=== PATIENT | female | born 1965 | race African-American/Black ===

== ENCOUNTER 2016-09-14 08:59 | Emergency (ER) | payer BC ==
[~2016-09-14] VITALS: Ht 157.5 cm; Wt 72.6 kg
[~2016-09-14 08:59] MED LIST: ALLEGRA ALLERG180 MG PO; AMOXICILLIN500 MG ORAL; CIPRO500 MG PO; FAMOTIDINE20 MG ORAL; FIORICET1 EA ORAL; FLONASE1 SPRAYS NASAL; IBUPROFEN600 MG ORAL; NKM; ONDANSETRON ODT4 MG ORAL; RANITIDINE HCL150 MG ORAL; Tubing IV Cassette IV ONE; VICODIN 5-5001 EACH PO
--- NOTE | 2016-09-14 09:13 | Emergency Room Report ---
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 Bi-frontal, associated with nausea/vomiting, sensitivity to light, history of migraines, "this is how it starts." Took 2 200mg ibuprofen at 5am. Denies fever/chills, neck pain/ stiffness. Usually just takes ibuprofen for pain. Allergies: Coded Allergies: SHELLFISH (Verified Allergy, Unknown, ALLERGY TO SHRIMP, 11/01/11) Patient History Past Medical History: migraines Past Surgical History: none Pertinent Family History: none Social History: Denies: alcohol use, drug use, smoking Last Menstrual Period: Menopause Now: No Immunizations: UTD Reviewed Nursing Documentation: PMH: Agreed, PSxH: Agreed Review of Systems All Other Systems: negative except mentioned in HPI Physical Exam Vital Signs Date Time Temp Pulse Resp B/P Pulse Ox O2 Delivery O2 Flow Rate FiO2 09/14/16 09:06 97.9 80 16 138/94 98 Room Air Sp02 EP Interpretation: reviewed, normal General Appearance: normal inspection, well appearing, alert, GCS 15, non-toxic , mild distress Head: normocephalic, atraumatic Eyes: bilateral eye EOMI, bilateral eye PERRL ENT: normal ENT inspection, hearing grossly normal, normal voice Neck: normal inspection, full range of motion, supple, thyroid normal, no meningismus, no bony tend Respiratory: normal inspection, lungs clear, normal breath sounds, no respiratory distress, no retraction, no wheezing Cardiovascular #1: regular rate, rhythm, no edema Gastrointestinal: normal inspection, normal bowel sounds, non tender, soft, no guarding, no hernia Genitourinary: no CVA tenderness Musculoskeletal: normal inspection, back normal, normal range of motion, Nida' s Sign negative Neurologic: normal inspection, alert, oriented x3, responsive, weaver narrow fabrics III-XII nml as tested, motor strength/tone normal, speech normal Psychiatric: normal inspection, judgement/insight normal, mood/affect normal Skin: normal inspection, normal color, no rash, warm/dry Lymphatic: normal inspection Medical Decision Making Diagnostic Impression: Primary Impression: Headache Qualified Codes: G44.209 - Tension-type headache, unspecified, not intractable ER Course 51YOF with headache. VSS. Afebrile. Low suspicion for SAH or meningitis given well appearance, absence of focal neuro deficits, absence of meningismus, normal vital signs, and duration and intensity of headache. IV toradol/benadryl/reglan with IVF given with improvement CT head negative for acute process Headache resolved Neuro exam serially negative for focal deficits Vitals stable on discharge F/up with PMD with referral for Neurologist DC home Last Vital Signs Date Time Temp Pulse Resp B/P Pulse Ox O2 Delivery O2 Flow Rate FiO2 09/14/16 09:06 97.9 80 16 138/94 98 Room Air Status: improved Disposition: HOME, SELF-CARE Scripts Oxycodone/Acetaminophen 5-325* (PERCOCET 5-325 MG TABLET*) 1 Each Tablet 1 TAB ORAL BID Y for headache, #20 TAB Prov: ZACH BRUNO M.D. 09/14/16 ZACH BRUNO M.D. Sep 14, 2016 09:13
[2016-09-14] MEDS ORDERED: LR 1000ml 1,000 ML IV SCH (09:15)
[2016-09-14] MEDS ORDERED: Metoclopramide 10mg/2ml Inj IVP ONE (09:15)
[2016-09-14] MEDS ORDERED: DiphenhydrAMINE 50mg/ml Inj IVP ONE (09:15)
[2016-09-14] MEDS ORDERED: Ketorolac 30mg Inj IV ONE (09:15)
[2016-09-14] MEDS ORDERED: Oxycodone/Acetaminophen 5-325 ORAL ONE (10:45)
[2016-09-14 10:56] VITALS: BP 122/89
--- NOTE | 2016-09-14 11:48 | Diagnostic Imaging Report ---
Indication: Headache Technique: Contiguous 5 mm thick transaxial imaging of the head obtained in a Siemens Sensation [address] scanner. Soft tissue and bone windows generated. Total Dose length Product (DLP): [address] Dose Index Volume (CTDIvol): 70.38 mGy Comparison: 04/23/12 Findings: The size and configuration of the cortical sulci, basal cisterns, and ventricles are within normal limits for age. There is no mass effect, midline shift, or edema identified. There is no evidence of acute hemorrhage or abnormal intra-axial or extra-axial fluid collections. The bones and soft tissues are unremarkable. A mild mucosal thickening within the ethmoid sinus noted. Impression: No mass effect, edema or acute bleed. Mild sinusitis The CT scanner at [facility] is accredited by the [employer] and the scans are performed using protocols designed to limit radiation exposure to as low as reasonably achievable to attain images of sufficient resolution adequate for diagnostic evaluation.
[2016-09-14] MEDS ORDERED: PERCOCET 5-3251 EACH ORAL (11:56)
[2016-09-14 12:23] VITALS: BP 119/87
[2016-09-14 12:25] VITALS: BP 119/87
== END 2016-09-14 12:26 | disposition home or self-care (01) ==
LOC: EMR 09:15
DX: G44.209 Tension-type headache, unspecified, not intractable (principal); Z91.013 Allergy to seafood
CPT/HCPCS: 70450; 96374; 96375; 99284; J1200; J1885; J2765; J7120

== ENCOUNTER 2016-11-13 16:23 | Emergency (ER) | payer BC, OTHER ==
[~2016-11-13] VITALS: Ht 160 cm; Wt 72.6 kg
[~2016-11-13 16:23] MED LIST changes: +PERCOCET 5-3251 EACH ORAL; -Tubing IV Cassette IV ONE
[2016-11-13 16:42] VITALS: BP 135/90
[2016-11-13] MEDS ORDERED: PredniSONE 20mg tab ORAL ONE (16:45)
[2016-11-13] MEDS ORDERED: DIPHENHYDRAMINE25 M1 ORAL (17:28)
[2016-11-13] MEDS ORDERED: PREDNISONE20 MG ORAL (17:28)
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
== END 2016-11-13 17:46 | disposition home or self-care (01) ==
LOC: EMR 17:14
DX: L50.9 Urticaria, unspecified (principal); Z91.013 Allergy to seafood
CPT/HCPCS: 99284

== ENCOUNTER 2019-09-16 06:14 | Emergency (ER) | payer BC, OTHER ==
[~2019-09-16] VITALS: Ht 162.6 cm; Wt 81.6 kg
[~2019-09-16 06:14] MED LIST changes: +DIPHENHYDRAMINE25 M1 ORAL; +PREDNISONE20 MG ORAL
[2019-09-16 06:30] VITALS: BP 141/95
[2019-09-16] MEDS ORDERED: Ipratropium 0.02% Inh Soln 2.5ml UD HHN ONE (06:45)
[2019-09-16] MEDS ORDERED: Albuterol ud Inhalation HHN ONE (06:45)
--- NOTE | 2019-09-16 07:07 | Emergency Room Report ---
History of Present Illness General Chief Complaint: Asthma Source: Patient Present Illness HPI 54-year-old female presents ED for evaluation. States she has asthma and has been feeling short of breath since last night. States she used her inhaler without relief. Denies cough. Denies runny nose or congestion. Denies fevers or chills. Denies recent travel or recent sick contacts. No other aggravating relieving factors. Denies any other associated symptoms COVID-19 risk:Contact w/high r: No COVID-19 risk:Travel to affect: No Has patient experienced elizabeth: No Allergies: Coded Allergies: SHELLFISH (Verified Allergy, Unknown, ALLERGY TO SHRIMP, 11/01/11) Patient History Past Medical History: asthma Past Surgical History: none Pertinent Family History: none Social History: Denies: smoking, alcohol use, drug use Now: No Reviewed Nursing Documentation: PMH: Agreed; PSxH: Agreed Nursing Documentation-PMH Hx Asthma: Yes Review of Systems All Other Systems: negative except mentioned in HPI Physical Exam Vital Signs Date Time Temp Pulse Resp B/P (MAP) Pulse Ox O2 Delivery O2 Flow Rate FiO2 09/16/19 06:18 98.2 88 19 141/95 (110) 95 Room Air 09/16/19 06:28 98 Sp02 EP Interpretation: reviewed, normal General Appearance: no apparent distress, alert, GCS 15, non-toxic Head: normocephalic, atraumatic Eyes: bilateral eye normal inspection, bilateral eye PERRL ENT: hearing grossly normal, normal pharynx, no angioedema, normal voice Neck: full range of motion, supple/symm/no masses Respiratory: chest non-tender, lungs clear, decreased breath sounds, speaking full sentences Cardiovascular #1: regular rate, rhythm, no edema Cardiovascular #2: 2+ carotid (R), 2+ carotid (L), 2+ radial (R), 2+ radial (L) , 2+ dorsalis pedis (R), 2+ dorsalis pedis (L) Gastrointestinal: normal bowel sounds, non tender, soft, non-distended, no guarding, no rebound Rectal: deferred Genitourinary: normal inspection, no CVA tenderness Musculoskeletal: back normal, normal range of motion, gait/station normal, non- tender Neurologic: alert, motor strength/tone normal, oriented x3, sensory intact, responsive, speech normal Psychiatric: judgement/insight normal, memory normal, mood/affect normal, no suicidal/homicidal ideation Reflexes: 3+ bicep (R), 3+ bicep (L), 3+ tricep (R), 3+ tricep (L), 3+ knee (R) , 3+ knee (L) Skin: no rash Lymphatic: no adenopathy Medical Decision Making Diagnostic Impression: Primary Impression: Asthma Qualified Codes: J45.20 - Mild intermittent asthma, uncomplicated ER Course Hospital Course 54-year-old female presents to ED complaining of wheezing. h/o asthma Differential diagnoses include: URI, bronchitis, asthma/COPD, pneumonia Clinical course Patient placed on stretcher. After initial history, physical exam reveals a female in no acute distress. Bilateral TM unremarkable. No pharyngeal erythema. No tonsillar exudates. No lymphadenopathy. Mild wheezing noted on exam, no signs of respiratory distress or retractions. Patient given Prednisone and albuterol treatment in ED with symptoms improved. Reassurance given I discussed findings with the patient. Has no upper respiratory symptoms. No runny nose or congestion. No cough. No fever. No sick contacts or recent travel. Likelihood of coronavirus is low however I do encourage patient to self isolate as much as possible. Patient agrees. Safe for discharge with close outpatient follow-up. States she has a PMD Diagnosis - asthma Stable and discharged home with prescriptions for prednisone, albuterol inhaler. Instructed to followup with PMD. Return to ED if symptoms recur or worsen Last Vital Signs Date Time Temp Pulse Resp B/P (MAP) Pulse Ox O2 Delivery O2 Flow Rate FiO2 09/16/19 06:45 86 22 100 Room Air 21 82 24 100 09/16/19 06:30 98.2 141/95 Status: improved Disposition: HOME, SELF-CARE Condition: Stable Scripts Prednisone* (PREDNISONE*) 20 Mg Tablet 40 MG ORAL DAILY, #10 TAB Prov: Canelo Bagley MD 09/16/19 Albuterol Sulfate* (ALBUTEROL SULFATE MDI*) 8.5 Gm Hfa.aer.ad 2 PUFF INH Q6H, #1 EA 0 Refills Prov: Canelo Bagley MD 09/16/19 Referrals: [facility]ERR[facility] (PCP) Canelo Bagley MD Sep 16, 2019 07:07
[2019-09-16] MEDS ORDERED: PREDNISONE20 MG ORAL (07:13)
[2019-09-16] MEDS ORDERED: ALBUTEROL SULF8.5 GM INH (07:13)
[2019-09-16 07:31] VITALS: BP 152/97
== END 2019-09-16 07:32 | disposition home or self-care (01) ==
LOC: EMR 06:45
DX: J45.20 Mild intermittent asthma, uncomplicated (principal); Z91.013 Allergy to seafood
CPT/HCPCS: 99283; J7512